=== PATIENT | male | born 1960 | race Caucasian/White ===

== ENCOUNTER 2017-02-18 09:36 | Day surgery (SDC) | payer OTHER ==
[2017-02-18] MEDS ORDERED: LACTATED RINGERS 1,000 ML ONE (10:07)
[2017-02-18] MEDS ORDERED: IV START KIT ONE (10:08)
[2017-02-18] MEDS ORDERED: LEVOFLOXACIN 500 MG/D5W 100 ML 100 ML IV ONE ×2 (10:35→11:46)
[2017-02-18] MEDS ORDERED: MIDAZOLAM HCL 5 MG/5 ML VIAL ONE (11:14)
[2017-02-18] MEDS ORDERED: FENTANYL 250 MCG/5 ML AMP ONE (11:14)
[2017-02-18] MEDS ORDERED: CEFAZOLIN SODIUM 1,000 MG VIAL ONE (11:54)
[2017-02-18] MEDS ORDERED: SODIUM CHLORIDE 0.9% FLUSH 10 ML ONE (11:54)
[2017-02-18] MEDS ORDERED: BUPIVACAINE 0.5% (PRES FREE) 30 ML VIAL ONE (11:54)
[2017-02-18] MEDS ORDERED: CITRIC ACID/SODIUM CITRATE 15 ML UDCUP PO ONE (11:58)
[2017-02-18] MEDS ORDERED: FAMOTIDINE 10 MG/ML 2ML VIAL ONE (11:59)
[2017-02-18] MEDS ORDERED: ONDANSETRON 4 MG/2ML 2 ML VIAL ONE (12:20)
[2017-02-18] MEDS ORDERED: PROPOFOL 20 ML IV ONE (12:20)
[2017-02-18] MEDS ORDERED: SUCCINYLCHOLINE CHL 20 MG/ML DOSE ONE (12:20)
[2017-02-18] MEDS ORDERED: DEXAMETHASONE SOD PHOS 4 MG/1 ML VIAL ONE (12:24)
[2017-02-18] MEDS ORDERED: EPHEDRINE SULFATE UD SYR 25 MG 25 MG/5 ML SYRINGE IV ONE (12:31)
[2017-02-18] MEDS ORDERED: PROMETHAZINE HCL 25 MG/ML VIAL IM PRN (12:35)
[2017-02-18] MEDS ORDERED: ONDANSETRON 4 MG/2ML 2 ML VIAL IV PRN ×2 (12:35→14:31)
[2017-02-18] MEDS ORDERED: FENTANYL 100 MCG/2 ML VIAL IV PRN (12:35)
[2017-02-18] MEDS ORDERED: HYDROMORPHONE HCL 1 MG/ML SYRINGE IV PRN (12:35)
[2017-02-18] MEDS ORDERED: LACTATED RINGERS 1,000 ML IV SCH (12:45)
[2017-02-18] MEDS ORDERED: PHENYLEPHRINE 10 MG/1 ML (1%) VIAL ONE (12:53)
[2017-02-18] MEDS ORDERED: OXYCODONE HCL 5 MG TABLET PO PRN (14:31)
[2017-02-18] MEDS ORDERED: DIPHENHYDRAMINE HCL 50 MG/1 ML VIAL IV PRN (14:31)
[2017-02-18] MEDS ORDERED: MORPHINE SULFATE 2 MG/ML SYRINGE IV PRN (14:31)
[2017-02-18] MEDS ORDERED: ACETAMINOPHEN 325 MG TABLET PO PRN (14:31)
[2017-02-18] MEDS ORDERED: OXYCODONE HCL 5 MG TABLET ONE (15:19)
--- NOTE | 2017-02-18 17:03 | OP ---
CHANO PATHAK [id number] DATE OF OPERATION: February 18, 2017 PREOPERATIVE DIAGNOSIS: Left inguinal hernia. POSTOPERATIVE DIAGNOSIS: Left inguinal hernia. PROCEDURE: LEFT INGUINAL HERNIA REPAIR WITH MESH PLUG TIMES THREE AND PATCH. SURGEON: Franko Ruiz M.D. BROKER: Salvador Saini ANESTHESIA: Matt LarkinN.Buffy, general endotracheal. INDICATIONS: This is a 56-year-old male who presents for elective repair of a left inguinal hernia. DESCRIPTION: With informed consent he was taken to the operating room. He was laid supine on the operating room table. General anesthesia was administered. The left groin was prepped and draped in the usual sterile fashion. Marcaine was infiltrated in the skin and subcutaneous tissues. Incision was made overlying the inguinal canal. Electrocautery was used to divide the subcutaneous fat and Danii's fascia. We dissected down to the external oblique. This was opened with a knife and Metzenbaum scissors in a fiber splitting technique. There was a large bulging area along with the cord structures. Eventually we were able to dissect the cord structures free at the level of the pubic tubercle. There was a large direct defect. No indirect sac was seen. There was quite a bit of fat within the cord structures themselves. Eventually I dissected all of the large direct defect free and incised this at the level of the floor to enter into a preperitoneal space. I ended up putting two extra large mesh plugs in which were by the inferior epigastric blood vessels in a pantaloon type fashion. They were sutured together with #2-0 Vicryl. They were secured circumferentially with #2-0 Vicryl. It still felt like there was weakness superior and lateral to the cord, and I ended up putting in a medium mesh plug in that place. This was secured to the other mesh and also to the lateral internal oblique. A flat piece of mesh was then placed across the floor of the canal. The medial aspect overlapped the pubic tubercle. I did secure it down to the shelving edge and up along the conjoined tendon. A slit was cut laterally and placed around the cord structures and secured laterally. This was placed up beneath the external oblique. The wound was irrigated. We appeared to have adequate hemostasis. The external oblique was reapproximated with a running #2-0 Vicryl. Some additional Marcaine was infiltrated beneath the external oblique and in the subcutaneous tissues for postoperative pain control. Danii's fascia was reapproximated with #3-0 Vicryl. The skin was closed with a running subcuticular #4-0 Monocryl. Mastisol and SteriStrips were placed. Sterile dressings were applied. He tolerated the procedure and was taken to the recovery room in stable condition. Note was made that needle, instrument and lap counts were reported as correct at the time of closure. Cc: Odalys Mathew M.D.
== END 2017-02-18 15:43 | disposition home or self-care (01) ==
LOC: SDC 09:36
PROVIDERS: ATTEND Surgery
PROC: 0YU60JZ Supplement Left Inguinal Region with Synthetic Substitute, Open Approach (ICD-10-PCS; principal; 2017-02-18)
DX: K40.90 Unilateral inguinal hernia, without obstruction or gangrene, not specified as recurrent (principal); I48.0 Paroxysmal atrial fibrillation; G47.30 Sleep apnea, unspecified; K44.9 Diaphragmatic hernia without obstruction or gangrene; K21.9 Gastro-esophageal reflux disease without esophagitis; D64.9 Anemia, unspecified; Z88.8 Allergy status to other drugs, medicaments and biological substances; Z88.1 Allergy status to other antibiotic agents
CPT/HCPCS: 49505; J0690; J3010; J1100; J1956; J2370; A9270; J2250; J2405; J7120